=== PATIENT | male | born 1945 | race African-American/Black ===

== ENCOUNTER 2016-12-03 08:19 | Inpatient (IN) | payer MEDICARE ==
[~2016-12-03] VITALS: Ht 167.6 cm; Wt 73.9 kg
[2016-12-03] MEDS ORDERED: SODIUM CHLORIDE 0.9% 1,000 ML ONE (09:51)
[2016-12-03] MEDS ORDERED: ORPHENADRINE 60 MG/2 ML AMP ONE (09:51)
[2016-12-03] MEDS ORDERED: KETOROLAC 30 MG/ML VIAL ONE (09:51)
[2016-12-03] MEDS ORDERED: DILAUDID 1 MG/ML AMP ONE ×2 (10:59→11:57)
[2016-12-03] MEDS ORDERED: ONDANSETRON 4 MG VIAL ONE ×2 (10:59→11:56)
[2016-12-03] MEDS ORDERED: MORPHINE 2 MG/ML SYR IV PRN (13:15)
[2016-12-03] MEDS ORDERED: GLUCAGON 1 MG VIAL IM PRN (13:15)
[2016-12-03] MEDS ORDERED: ACETAMINOPHEN 325 MG TAB PO PRN (13:15)
[2016-12-03] MEDS ORDERED: DEXTROSE 50% SYRINGE 50 ML IV PRN (13:15)
[2016-12-03] MEDS ORDERED: ONDANSETRON 4 MG VIAL IV PRN (13:15)
[2016-12-03] MEDS ORDERED: MAGNEVIST 15ML IV ONE (13:16)
[2016-12-03 14:05] VITALS: BP_SYST 130; BP_SYST 134; RESP 18; TEMP 97.2; Ht 167.6 cm; Wt 73.9 kg
[2016-12-03] MEDS: METHYLPRED SOD SUCC 40 MG VIAL IV SCH (15:43)
[2016-12-03] MEDS: POLYETHYLENE GLYCOL 17 GM PACKET PO SCH (15:44)
[2016-12-03] MEDS: DILAUDID 1 MG/ML AMP IV PRN ×2 (18:28→21:52)
[2016-12-03 19:12] VITALS: BP_SYST 126; RESP 20; TEMP 97.4
[2016-12-03 19:32] VITALS: RESP 16
[2016-12-03] MEDS: SALINE FLUSH 10 ML FLUSH SCH (21:02)
[2016-12-03] MEDS: SALINE FLUSH 10 ML FLUSH PRN (21:52)
[2016-12-03 23:11] VITALS: BP_SYST 122
[2016-12-03 23:12] VITALS: RESP 18; TEMP 97.7
[2016-12-04] VITALS (7 sets, daily range): BP systolic 118–138; RESP 16–20; TEMP 97.3–97.8
[2016-12-04] MEDS: METHYLPRED SOD SUCC 40 MG VIAL IV SCH ×2 (01:21→08:32)
[2016-12-04] MEDS: PRAVASTATIN 40 MG TAB PO SCH ×2 (01:22→20:39)
[2016-12-04] MEDS: DILAUDID 1 MG/ML AMP IV PRN ×4 (01:47→14:34)
[2016-12-04] MEDS: SALINE FLUSH 10 ML FLUSH PRN (01:48)
[2016-12-04] MEDS: SODIUM CHLORIDE 0.9% FLUSH BAG 500 ML IV SCH (05:03)
[2016-12-04] MEDS: amLODIPine 10 MG TAB PO SCH (08:32)
[2016-12-04] MEDS: glipiZIDE 5 MG TAB PO SCH (08:32)
[2016-12-04] MEDS: LISINOPRIL 2.5 MG TAB PO SCH (08:32)
[2016-12-04] MEDS: SALINE FLUSH 10 ML FLUSH SCH ×2 (08:32→20:40)
[2016-12-04] MEDS: POLYETHYLENE GLYCOL 17 GM PACKET PO SCH (08:32)
[2016-12-04] MEDS: CYCLOBENZAPRINE 10 MG TAB PO SCH ×2 (17:13→20:39)
[2016-12-05 03:16] VITALS: BP_SYST 133; RESP 20; TEMP 97.8
[2016-12-05] MEDS: SODIUM CHLORIDE 0.9% FLUSH BAG 500 ML IV SCH (06:00)
[2016-12-05 07:15] VITALS: BP_SYST 120; RESP 20; TEMP 97.6
[2016-12-05] MEDS ORDERED: MISSING DOSE XX ONE (08:35)
[2016-12-05] MEDS: glipiZIDE 5 MG TAB PO SCH (08:35)
[2016-12-05] MEDS: SALINE FLUSH 10 ML FLUSH SCH (08:35)
[2016-12-05] MEDS: amLODIPine 10 MG TAB PO SCH (08:36)
[2016-12-05] MEDS: POLYETHYLENE GLYCOL 17 GM PACKET PO SCH (08:36)
[2016-12-05] MEDS: CYCLOBENZAPRINE 10 MG TAB PO SCH (08:36)
[2016-12-05] MEDS ORDERED: ENOXAPARIN 40 MG/0.4 ML SYR SUBQ SCH (09:00)
[2016-12-05] MEDS: LISINOPRIL 2.5 MG TAB PO SCH (10:15)
[2016-12-05 11:03] VITALS: BP_SYST 125; RESP 20; TEMP 98
[2016-12-05 14:21] VITALS: BP_SYST 120; RESP 20; TEMP 97.1
[2016-12-05 14:36] VITALS: BP_SYST 120; RESP 20; TEMP 97.1
== END 2016-12-05 15:21 | disposition home or self-care (01) | DRG 552 ==
LOC: ENRESERVDT → ENRESERVTM → ER 08:19 → EMR 13:15 → UNDOADMOB 13:31 → EMR 14:17 → 3NT 14:17 → OBSVTOIN 12-04 17:40 → ENPENDDIS 12-04 17:40
PROVIDERS: ADMIT Internal Medicine; ATTEND Internal Medicine
DX: M54.31 Sciatica, right side (principal); E11.9 Type 2 diabetes mellitus without complications; I10 Essential (primary) hypertension; Z87.891 Personal history of nicotine dependence; M51.36 Other intervertebral disc degeneration, lumbar region; M48.06 Spinal stenosis, lumbar region; Z79.84 Long term (current) use of oral hypoglycemic drugs
CPT/HCPCS: 36415; 72100; 72158; 80053; 81003; 82947; 85025; 85610; 85652; 85730; 86141; 94799; 96361; 96372; 96374; 96375; 96376; 99232; 99238